=== PATIENT | female | born 1975 | race Caucasian/White ===

== ENCOUNTER 2016-05-31 18:52 | Emergency (ER) | payer OTHER ==
[2016-05-31 19:02] VITALS: BP 127/76
--- NOTE | 2016-05-31 19:33 | UC ---
Throat Pain/Nasal Carlos HPI - HPI Summary HPI Summary: SIX DAYS OF RUNNY NOSE, FOUR DAYS OF SINUS PRESSURE , POST NASAL DRIP, AND LEFT EAR ACHE. NO FEVER. - History of Current Complaint Chief Complaint: UCGeneralIllness Stated Complaint: SINUS Time Seen by Provider: 05/31/16 18:59 Hx Obtained From: Patient Hx Last Menstrual Period: 05/19/16 Onset/Duration: Gradual Onset, Lasting Days Severity: Mild Pain Intensity: 5 Pain Scale Used: 0-10 Numeric Cough: None Associated Signs & Symptoms: Positive: Hoarseness, Sinus Discomfort, Nasal Discharge - Epiglottits Risk Factors Epiglottis Risk Factors: Negative - Allergies/Home Medications Allergies/Adverse Reactions: Allergies Allergy/AdvReac Type Severity Reaction Status Date / Time Clavulanic Acid AdvReac GI Upset Verified 05/31/16 19:02 [From Augmentin] PMH/Surg Hx/FS Hx/Imm Hx Previously Healthy: Yes Endocrine History Of: Reports: Thyroid Disease - hypothyroidism, TAVIA Denies: Diabetes, Hyperthyroidism, Hypothyroidism, Dyslipidemia Cardiovascular History Of: Denies: Cardiac Disorders, Hypertension, Pacemaker/ICD, Myocardial Infarction , Congestive Heart Failure, Atrial Fibrillation, Deep Vein Thrombosis, Bleeding Disorders Respiratory History Of: Denies: COPD, Asthma, Bronchitis, Pneumonia, Pulmonary Embolism GI/ History Of: Denies: Gastroesophageal Reflux, Ulcer, Gastrointestinal Bleed, Gall Bladder Disease, Kidney Stones, Diverticulitis, Renal Disease, Urosepsis Neurological History Of: Denies: TIA, CVA, Dementia, Seizures, Migraine Psychological History Of: Denies: Anxiety, Depression, Bipolar Disorder, Schizophrenia, Post Traumatic Stress Disorder Cancer History Of: Denies: Lung Cancer, Colorectal Cancer, Breast Cancer, Prostate Cancer, Cervical Cancer Other History Of: Negative For: HIV, Hepatitis B, Hepatitis C - Surgical History Surgical History: Yes Surgery Procedure, Year, and Place: TUBAL LIGATION, T&A - Family History Known Family History: Positive: Cardiac Disease, Other - BREAST CA - Social History Occupation: Employed Full-time Lives: With Family Alcohol Use: None Substance Use Type: None Smoking Status (MU): Never Smoked Tobacco - Immunization History Most Recent Influenza Vaccination: [id number] Review of Systems Constitutional: Negative Skin: Negative Eyes: Negative ENT: Ear Ache, Nasal Discharge, Other - POST NASAL DRIP Respiratory: Negative Cardiovascular: Negative Gastrointestinal: Negative Genitourinary: Negative Motor: Negative Neurovascular: Negative Musculoskeletal: Negative Neurological: Negative Psychological: Negative All Other Systems Reviewed And Are Negative: Yes Physical Exam Triage Information Reviewed: Yes Appearance: Well-Appearing, No Pain Distress, Well-Nourished Vital Signs: Initial Vital Signs Temp 98.0 F 05/31/16 18:59 Pulse 84 05/31/16 18:59 Resp 16 05/31/16 18:59 BP 127/76 05/31/16 18:59 Pulse Ox 99 05/31/16 18:59 Vital Signs Reviewed: Yes Eye Exam: Normal ENT: Positive: Normal ENT inspection, Hearing grossly normal, Pharynx normal, Nasal congestion, TMs normal Dental Exam: Normal Neck exam: Normal Neck: Positive: Supple, Nontender, No Lymphadenopathy Respiratory Exam: Normal Respiratory: Positive: Chest non-tender, Lungs clear, Normal breath sounds, No respiratory distress, No accessory muscle use Cardiovascular Exam: Normal Cardiovascular: Positive: RRR, No Murmur, Pulses Normal, Brisk Capillary Refill Abdominal Exam: Normal Abdomen Description: Positive: Nontender, No Organomegaly, Soft Musculoskeletal Exam: Normal Musculoskeletal: Positive: Strength Intact, ROM Intact, No Edema Neurological Exam: Normal Psychological Exam: Normal Psychological: Positive: Normal Response To Family Skin Exam: Normal Throat Pain/Nasal Course/Dx - Differential Dx/Diagnosis Differential Diagnosis/HQI/PQRI: Pharyngitis, Sinusitis, Tonsillitis, URI Provider Diagnoses: UPPER RESPIRATORY INFECTION Discharge - Discharge Plan Condition: Stable Disposition: HOME Patient Education Materials: Upper Respiratory Infection (ED), Viral Syndrome ( ED) Referrals: Pebbles Felder PA [Primary Care Provider] -
== END 2016-05-31 19:20 | disposition home or self-care (01) ==
LOC: UCCORT 18:52
DX: J06.9 Acute upper respiratory infection, unspecified (principal); Z88.1 Allergy status to other antibiotic agents; E03.9 Hypothyroidism, unspecified; E06.3 Autoimmune thyroiditis
CPT/HCPCS: 99211; G0463

== ENCOUNTER 2016-09-01 21:39 | Emergency (ER) | payer OTHER ==
--- NOTE | 2016-09-01 22:12 | UC ---
Complaint Female HPI - HPI Summary HPI Summary: 40 year old female presents with severe suprapubic pain. I will send her to the ER. Called [facility] spoke to Belemaleksey Ceron - History Of Current Complaint Stated Complaint: PELVIC PAIN Time Seen by Provider: 09/01/16 22:04 Hx Last Menstrual Period: 05/19/16 - Allergies/Home Medications Allergies/Adverse Reactions: Allergies Allergy/AdvReac Type Severity Reaction Status Date / Time Clavulanic Acid AdvReac GI Upset Verified 09/01/16 22:06 [From Augmentin] Home Medications: Home Medications Ibuprofen TAB* [Advil TAB*] 800 mg PO Q8H PRN 09/01/16 [History Confirmed ] Levothyroxine TAB* [Synthroid TAB*] 125 mcg PO DAILY 09/01/16 [History Confirmed 09/01/16] Multivitamins/Minerals TAB* [Thera M Plus TAB*] 1 tab PO DAILY 09/01/16 [ History Confirmed 09/01/16] PMH/Surg Hx/FS Hx/Imm Hx Other History Of: Negative For: HIV, Hepatitis B, Hepatitis C - Surgical History Surgical History: Yes Surgery Procedure, Year, and Place: TUBAL LIGATION, T&A - Family History Known Family History: Positive: Cardiac Disease, Other - BREAST CA - Social History Alcohol Use: None Substance Use Type: None Smoking Status (MU): Never Smoked Tobacco - Immunization History Most Recent Influenza Vaccination: [id number] Review of Systems Constitutional: Negative Skin: Negative Eyes: Negative ENT: Negative Respiratory: Negative Cardiovascular: Negative Gastrointestinal: Other - SUPRAPUBIC PAIN Genitourinary: Negative Motor: Negative Neurovascular: Negative Musculoskeletal: Negative Neurological: Negative Psychological: Negative Physical Exam Triage Information Reviewed: Yes Eye Exam: Normal ENT Exam: Normal Dental Exam: Normal Neck exam: Normal Neck: Positive: 1 Respiratory Exam: Normal Cardiovascular Exam: Normal Abdominal Exam: Normal Abdomen Description: Positive: Other: - SUPRAPUBIC PAIN Musculoskeletal Exam: Normal Neurological Exam: Normal Psychological Exam: Normal Skin Exam: Normal Discharge - Discharge Plan Condition: Stable Disposition: HOME Referrals: Pebbles Felder PA [Primary Care Provider] -
[2016-09-01 22:20] VITALS: BP 140/82
== END 2016-09-01 22:21 | disposition home or self-care (01) ==
LOC: UCCORT 21:39
DX: R10.30 Lower abdominal pain, unspecified (principal)
CPT/HCPCS: 99212; G0463

== ENCOUNTER 2017-05-15 17:55 | Emergency (ER) | payer OTHER ==
[2017-05-15 18:46] VITALS: BP 139/86
[2017-05-15] MEDS ORDERED: Acetaminophen TAB* 325 MG PO ONE (19:06)
--- NOTE | 2017-05-15 19:32 | UC ---
FLU HPI - HPI Summary HPI Summary: Pt c/o sudden onset of fever, chills, body aches and cough X 2 days. Pt is a daycare provider - History of Current Complaint Chief Complaint: UCGeneralIllness Stated Complaint: SINUS COMPLAINT Time Seen by Provider: 05/15/17 18:41 Hx Obtained From: Patient Hx Last Menstrual Period: 1.5 WKS AGO ?: No Onset/Duration: Sudden Onset, Lasting Days Severity Currently: Moderate Severity Initially: Mild Pain Intensity: 6 Associated Signs & Symptoms: Positive: Fever, Myalgia, Cough, Nasal Congestion Related Hx: Possible Flu/Infectious Exposure - Risk Factors Influenza Risk Factors: Negative - Allergy/Home Medications Allergies/Adverse Reactions: Allergies Allergy/AdvReac Type Severity Reaction Status Date / Time amoxicillin [From Augmentin] AdvReac GI Upset Verified 05/15/17 18:48 clavulanic acid AdvReac GI Upset Verified 05/15/17 18:48 [From Augmentin] Home Medications: Home Medications Bcp 1 tab PO DAILY 05/15/17 [History] Levothyroxine TAB* [Synthroid TAB*] 150 mcg PO DAILY 05/15/17 [History Confirmed 05/15/17] PMH/Surg Hx/FS Hx/Imm Hx Previously Healthy: Yes Other History Of: Negative For: HIV, Hepatitis B, Hepatitis C - Surgical History Surgical History: Yes Surgery Procedure, Year, and Place: TUBAL LIGATION, T&A - Family History Known Family History: Positive: Cardiac Disease, Other - BREAST CA - Social History Occupation: Employed Full-time Lives: With Family Alcohol Use: None Substance Use Type: None Smoking Status (MU): Never Smoked Tobacco Have You Smoked in the Last Year: No - Immunization History Most Recent Influenza Vaccination: [id number] Review of Systems Constitutional: Fever, Chills, Fatigue Skin: Negative Eyes: Negative ENT: Sinus Congestion Respiratory: Cough Cardiovascular: Negative Gastrointestinal: Negative Genitourinary: Negative Motor: Negative Neurovascular: Negative Musculoskeletal: Myalgia Neurological: Headache Psychological: Negative Is Patient Immunocompromised?: No All Other Systems Reviewed And Are Negative: Yes Physical Exam Triage Information Reviewed: Yes Appearance: Ill-Appearing Vital Signs: Initial Vital Signs Temp 101.3 F 05/15/17 18:40 Pulse 129 05/15/17 18:40 Resp 22 05/15/17 18:40 BP 139/86 05/15/17 18:40 Pulse Ox 99 05/15/17 18:40 Vital Signs Reviewed: Yes Eye Exam: Normal ENT Exam: Other ENT: Positive: Nasal congestion, Sinus tenderness Neck exam: Normal Respiratory Exam: Normal Cardiovascular Exam: Normal Musculoskeletal Exam: Normal Neurological Exam: Normal Psychological Exam: Normal Skin Exam: Normal Diagnostics - Laboratory Diagnostic Studies Completed/Ordered: rapid flu: positive for Flu A Flu Course/Dx - Differential Dx/Diagnosis Differential Diagnosis/HQI/PQRI: Influenza Provider Diagnoses: Influenza A Discharge - Sign-Out/Discharge Documenting (check all that apply): Discharge - Discharge Plan Condition: Stable Disposition: HOME Patient Education Materials: Influenza (ED) Forms: *Work Release Referrals: RODERICK Peck [Primary Care Provider] - Additional Instructions: Please follow up with your PCP or return to clinic as needed. - Billing Disposition and Condition Condition: STABLE Disposition: HOME
== END 2017-05-15 19:39 | disposition home or self-care (01) ==
LOC: UCCORT 17:55
DX: J10.1 Influenza due to other identified influenza virus with other respiratory manifestations (principal); Z88.3 Allergy status to other anti-infective agents
CPT/HCPCS: 87502; 99211; A9270-GY; G0463

== ENCOUNTER 2017-05-24 16:58 | Emergency (ER) | payer OTHER ==
[2017-05-24 18:00] VITALS: BP 132/77
--- NOTE | 2017-05-24 18:19 | UC ---
UC General HPI - HPI Summary HPI Summary: pt is c/o 2 weeks sinus congestion, pressure and some bloody drainage. pt is self txing with a nedi pot. this began just after ba bout with the flu. - History of Current Complaint Stated Complaint: SINUS COMPLAINT Time Seen by Provider: 05/24/17 18:00 Hx Obtained From: Patient Hx Last Menstrual Period: 05/04/17 Onset/Duration: Gradual Onset Timing: Constant Pain Intensity: 3 Aggravating: nothing Alleviating: nedi pot helps to flush the drainage Associated Signs & Symptoms: Negative: Fever - Allergy/Home Medications Allergies/Adverse Reactions: Allergies Allergy/AdvReac Type Severity Reaction Status Date / Time amoxicillin [From Augmentin] AdvReac GI Upset Verified 05/24/17 18:00 clavulanic acid AdvReac GI Upset Verified 05/24/17 18:00 [From Augmentin] Home Medications: Home Medications Cholecalciferol TAB* [Vitamin D TAB*] 1,000 unit PO DAILY 05/24/17 [History Confirmed 05/24/17] PMH/Surg Hx/FS Hx/Imm Hx Endocrine History: Thyroid Disease Other History Of: Negative For: HIV, Hepatitis B, Hepatitis C - Surgical History Surgical History: Yes Surgery Procedure, Year, and Place: TUBAL LIGATION, T&A - Family History Known Family History: Positive: Cardiac Disease, Other - BREAST CA - Social History Occupation: Employed Full-time Lives: With Family Alcohol Use: None Substance Use Type: None Smoking Status (MU): Never Smoked Tobacco Have You Smoked in the Last Year: No - Immunization History Most Recent Influenza Vaccination: [id number] Vaccination Up to Date: Yes Review of Systems Constitutional: Negative Skin: Negative Eyes: Negative ENT: Nasal Discharge, Sinus Congestion, Sinus Pain/Tenderness Respiratory: Negative Cardiovascular: Negative Gastrointestinal: Negative Genitourinary: Negative Motor: Negative Neurovascular: Negative Musculoskeletal: Negative Neurological: Negative Psychological: Negative Is Patient Immunocompromised?: No All Other Systems Reviewed And Are Negative: Yes Physical Exam Triage Information Reviewed: Yes Appearance: Well-Appearing Vital Signs: Initial Vital Signs Temp 98.3 F 05/24/17 17:57 Pulse 103 05/24/17 17:57 Resp 18 05/24/17 17:57 BP 132/77 05/24/17 17:57 Pulse Ox 99 05/24/17 17:57 Vital Signs Reviewed: Yes Eyes: Positive: Conjunctiva Clear ENT: Positive: Pharynx normal, Nasal congestion, Nasal drainage - purulent with some blood, TMs normal, Sinus tenderness - maxilla Neck: Positive: Supple, Nontender, No Lymphadenopathy Respiratory: Positive: Lungs clear, Normal breath sounds Cardiovascular: Positive: RRR, No Murmur Abdomen Description: Positive: Nontender, No Organomegaly, Soft Bowel Sounds: Positive: Present Musculoskeletal: Positive: ROM Intact Neurological: Positive: Alert Psychological: Positive: Age Appropriate Behavior Skin Exam: Normal Course/Dx - Differential Dx - Multi-Symptom Provider Diagnoses: sinusitis Discharge - Sign-Out/Discharge Documenting (check all that apply): Discharge - Discharge Plan Condition: Stable Disposition: HOME Prescriptions: DOXYcycline CAP(*) [DOXYcycline 100MG CAP(*)] 100 mg PO BID 10 Days #20 cap Patient Education Materials: Sinusitis (ED) Referrals: RODERICK Peck [Primary Care Provider] - 7 Days - Billing Disposition and Condition Condition: STABLE Disposition: HOME
[2017-05-24] MEDS ORDERED: DOXYcycline CAP(*) 100 MG PO ONE (18:28)
== END 2017-05-24 18:32 | disposition home or self-care (01) ==
LOC: UCCORT 16:58
DX: J32.9 Chronic sinusitis, unspecified (principal); Z88.3 Allergy status to other anti-infective agents
CPT/HCPCS: 99212; A9270-GY; G0463

== ENCOUNTER 2019-02-11 09:53 | Emergency (ER) | payer OTHER ==
[2019-02-11 11:07] VITALS: BP 129/88
--- NOTE | 2019-02-11 13:16 | UC ---
Eye Complaint HPI - HPI Summary HPI Summary: 43-year-old female presents with complaints of right eye itching and upper eyelid redness and swelling. Patient states yesterday noted some mild itching to the eye. This morning she woke up and had some crusting on the eyelashes and noticed that her right upper eyelid was red, swollen, and mildly tender to touch. Denies injury, fever, chills, eye redness, discharge, eye pain, visual disturbances, foreign body sensation, or URI symptoms. - History of Current Complaint Chief Complaint: UCEye Stated Complaint: RIGHT EYE Time Seen by Provider: 02/11/19 12:18 Hx Obtained From: Patient Hx Last Menstrual Period: 05/04/17 Pain Intensity: 0 - Allergies/Home Medications Allergies/Adverse Reactions: Allergies Allergy/AdvReac Type Severity Reaction Status Date / Time amoxicillin [From Augmentin] AdvReac GI Upset Verified 02/11/19 11:00 clavulanic acid AdvReac GI Upset Verified 02/11/19 11:00 [From Augmentin] Home Medications: Home Medications Cetirizine* [ZyrTEC 10 MG TAB*] 10 mg PO DAILY 02/11/19 [History Confirmed 02/11] PMH/Surg Hx/FS Hx/Imm Hx Endocrine History: Thyroid Disease Other History Of: Negative For: HIV, Hepatitis B, Hepatitis C - Surgical History Surgical History: Yes Surgery Procedure, Year, and Place: TUBAL LIGATION, T&A - Family History Known Family History: Positive: Cardiac Disease, Other - BREAST CA - Social History Occupation: Employed Full-time Lives: With Family Alcohol Use: None Substance Use Type: None Smoking Status (MU): Never Smoked Tobacco Have You Smoked in the Last Year: No - Immunization History Most Recent Influenza Vaccination: [id number] Vaccination Up to Date: Yes Review of Systems All Other Systems Reviewed And Are Negative: Yes Constitutional: Negative: Fever, Chills Eyes: Positive: Other - See HPI. Negative: Blurred Vision, Diplopia, Drainage, Eye Redness, Photophobia ENT: Negative: Sore Throat, Ear Ache, Nasal Discharge, Sinus Congestion, Sinus Pain/Tenderness Respiratory: Negative: Cough Cardiovascular: Positive: Negative Gastrointestinal: Positive: Negative Genitourinary: Positive: Negative Musculoskeletal: Positive: Negative Neurological: Positive: Negative Is Patient Immunocompromised?: No Physical Exam - Summary Physical Exam Summary: GENERAL APPEARANCE: Well developed, well nourished, alert and cooperative, and appears to be in no acute distress. EYES: Conjunctiva clear. No drainage. PERRL, EOM intact. Vision is grossly intact. Right upper eye lid with external hordeolum with erythema and mild edema. EARS: External auditory canals and tympanic membranes clear, hearing grossly intact. NOSE: No nasal discharge. THROAT: Pharynx normal. No tonsilar inflammation, swelling, exudate, or lesions. Uvula midline. Oral cavity normal. Teeth and gingiva in good general condition. NECK: Neck supple, non-tender without lymphadenopathy. CARDIAC: Normal S1 and S2. No S3, S4 or murmurs. Rhythm is regular. There is no peripheral edema, cyanosis or pallor. Extremities are warm and well perfused. Capillary refill is less than 2 seconds. Peripheral pulses intact. LUNGS: Clear to auscultation without rales, rhonchi, wheezing or diminished breath sounds. ABDOMEN: Positive bowel sounds. Soft, nondistended, nontender. No guarding or rebound. No masses or hepatosplenomegally. MUSKULOSKELETAL: ROM intact to all extremities. No joint erythema or tenderness. Normal muscular development. Normal gait. SKIN: Skin normal color, texture and turgor with no lesions or eruptions. Triage Information Reviewed: Yes Vital Signs: Initial Vital Signs Temp 97.8 F 02/11/19 11:01 Pulse 71 02/11/19 11:01 Resp 15 02/11/19 11:01 BP 129/88 02/11/19 11:01 Pulse Ox 99 02/11/19 11:01 Vital Signs Reviewed: Yes Eye Complaint Course/Dx - Course Course Of Treatment: 43-year-old female presents with complaints of right eye itching and upper eyelid redness and swelling. Patient states yesterday noted some mild itching to the eye. This morning she woke up and had some crusting on the eyelashes and noticed that her right upper eyelid was red, swollen, and mildly tender to touch. Denies injury, fever, chills, eye redness, discharge, eye pain, visual disturbances, foreign body sensation, or URI symptoms. Afebrile. Vital signs stable. Patient had clear conjunctiva without drainage, PERRL, EOM intact, vision is grossly intact. There was an external hordeolum with erythema and mild edema to the right upper eye lid. Remainder of exam unremarkable. Recommending conservative treatment for a right upper eyelid stye including over the counter analgesics and warm moist packing of the eye. Patient is to follow-up with ophthalmology in 5-7 days if symptoms are not improving. Anticipatory guidance and warning symptoms requiring immediate reevaluation were reviewed with the patient. Verbalizes understanding and agrees with plan of care. - Differential Dx/Diagnosis Differential Diagnosis/HQI/PQRI: Conjunctivitis, Corneal Abrasion, Foreign Body , Periorbital Cellulitis, Orbital Cellulitis Provider Diagnosis: Hordeolum externum right upper eyelid Discharge ED - Sign-Out/Discharge Documenting (check all that apply): Patient Departure All imaging exams completed and their final reports reviewed: No Studies - Discharge Plan Condition: Stable Disposition: HOME Patient Education Materials: Stye (ED) Referrals: Naya Nicholas PA [Primary Care Provider] - () Kevin FERNANDEZ,Irma [Medical Doctor] - 5 Days (Follow up in 5-7 days if no improvement in symptoms. Call for appointment.) Additional Instructions: Your symptoms are consistent with a stye (hordeolum) of the right upper eyelid. Apply a warm moist pack to the eye for 15 minutes at least 3-4 times a day. Use acetaminophen (Tylenol) or ibuprofen (Advil, Motrin) according to directions as needed for pain. Follow up with ophthalmology in 5-7 days if no improvement in symptoms. Seek immediate medical attention in the emergency room if you develop fever greater than 100.5 F, have pain or swelling of the eye, visual disturbances, loss of vision, or any worsening of symptoms. - Billing Disposition and Condition Condition: STABLE Disposition: Home
== END 2019-02-11 13:30 | disposition home or self-care (01) ==
LOC: UCCORT 09:53
DX: H00.011 Hordeolum externum right upper eyelid (principal); Z88.0 Allergy status to penicillin
CPT/HCPCS: 99211; G0463